=== PATIENT | female | born 1995 | race Caucasian/White ===

== ENCOUNTER → 2021-07-14 | Outpatient (CLI) | payer OTHER | LOC: M LAB 15:38 | PROVIDERS: ATTEND Nurse Practitioner Adult Health | DX: N91.2 Amenorrhea, unspecified (principal) ==

== ENCOUNTER 2021-11-16 15:13 | Emergency (ER) | payer OTHER ==
[~2021-11-16] VITALS: Ht 165.1 cm; Wt 63.6 kg
[2021-11-16] MEDS ORDERED: PREN1CHW6 PO (15:21)
[2021-11-16 16:23] LABS: BASO % 0.4 % (0.0-1.0); EOS # 0.1 10^3/uL (0.0-0.5); EOS % 0.5 % (0.0-3.0); HEMATOCRIT 39.5 % (36.0-47.0); HEMOGLOBIN 13.2 g/dl (12.0-15.5); LYMPH # 1.1 10^3/uL (1.5-5.0); MEAN CORPUSCULAR HEMOGLOBIN 30.3 pg (27.0-33.0); MEAN CORPUSCULAR HGB CONC 33.4 g/dl (32.0-36.5); MEAN CORPUSCULAR VOLUME 90.6 fl (80.0-96.0); MONO # 0.5 10^3/uL (0.0-0.8); MONO % 4.5 % (2.0-8.0); NEUTROPHILS # 8.5 10^3/uL (1.5-8.5); NEUTROPHILS % 83.3 % (36.0-66.0); PLATELET COUNT, AUTOMATED 181 10^3/uL (150-450); RED BLOOD COUNT 4.36 10^6/uL (4.00-5.40); WHITE BLOOD COUNT 10.2 10^3/uL (4.0-10.0)
[2021-11-16 17:05] LABS: APPEARANCE, URINE MANUAL CLEAR (CLEAR); BILIRUBIN, URINE MANUAL NEGATIVE (NEGATIVE); BLOOD URINE MANUAL POSITIVE (NEGATIVE); COLOR, URINE MANUAL YELLOW (YELLOW); GLUCOSE, URINE (UA) MANUAL NEGATIVE (NEGATIVE); KETONE, URINE MANUAL NEGATIVE (NEGATIVE); LEUKOCYTE ESTERASE, URINE MAN POSITIVE (NEGATIVE); NITRITE, URINE MANUAL NEGATIVE (NEGATIVE); PH,URINE MAN 6.5 UNITS (5.0 - 7.0); PROTEIN, URINE MANUAL NEGATIVE (NEGATIVE); SPECIFIC GRAVITY,URINE MANUAL 1.015 (1.002-1.035); UROBILINOGEN, URINE MANUAL NORMAL (NORMAL)
[2021-11-16 17:17] LABS: BLOOD UREA NITROGEN 13 MG/DL (7-18); CALCIUM LEVEL 8.9 MG/DL (8.5-10.1); CARBON DIOXIDE LEVEL 27 MEQ/L (21-32); CHLORIDE LEVEL 108 MEQ/L (98-107); CREATININE FOR GFR 0.69 MG/DL (0.55-1.30); GLOMERULAR FILTRATION RATE > 60.0 (>60); GLUCOSE, FASTING 92 MG/DL (70-100); HCG, SERUM QUANTITATIVE 1418 MIU/ML; POTASSIUM SERUM 3.8 MEQ/L (3.5-5.1); SODIUM LEVEL 140 MEQ/L (136-145)
[2021-11-16 17:37] LABS: BACTERIA, URINE LARGE AMOUNT; SQUAMOUS EPITHELIAL CELL URINE LARGE AMOUNT /hpf (SMALL AMT); WBC, URINE 15-20 /hpf (0-3)
[2021-11-16 20:33] VITALS: BP 112/63
== END 2021-11-16 20:38 | disposition home or self-care (01) ==
LOC: M ED 15:13
DX: O26.851 Spotting complicating pregnancy, first trimester (principal); Z3A.01 Less than 8 weeks gestation of pregnancy

== ENCOUNTER 2022-09-19 12:38 | Outpatient (CLI) | payer OTHER ==
[~2022-09-19] VITALS: Ht 165.1 cm; Wt 78.2 kg
[~2022-09-19 12:38] MED LIST: PREN1CHW6 PO
[2022-09-19 12:55] VITALS: BP 135/92; TEMP 99.8
[2022-09-19] MEDS ORDERED: NOXI1TAB PO (13:05)
[2022-09-19 13:09] VITALS: BP 130/76
[2022-09-19] MEDS ORDERED: HOME MED LIST COMPLETE! XX SCH (13:10)
[2022-09-19] MEDS ORDERED: CLOTRIMAZOLE 1% VAG CR 45 GM PV SCH (21:00)
[2022-09-19] MEDS ORDERED: MICONAZOLE-7 VAGINAL 2% CREAM 47.7GM PV SCH (21:00)
== END 2022-09-19 15:00 | disposition home or self-care (01) ==
LOC: M LDO 12:38
PROVIDERS: ATTEND Advanced Practice Midwife
DX: O36.8130 Decreased fetal movements, third trimester, not applicable or unspecified (principal); Z3A.35 35 weeks gestation of pregnancy; O23.593 Infection of other part of genital tract in pregnancy, third trimester
CPT/HCPCS: 59025; 76815; 87081; G0463

== ENCOUNTER → 2022-10-06 | Outpatient (CLI) | payer OTHER ==
[~2022-10-06] MED LIST changes: +NOXI1TAB PO
== END ==
LOC: M WHC 07:38
PROVIDERS: ATTEND Obstetrics & Gynecology
DX: O26.843 Uterine size-date discrepancy, third trimester (principal); Z3A.37 37 weeks gestation of pregnancy

== ENCOUNTER 2022-10-11 03:47 | Inpatient (IN) | payer OTHER ==
[~2022-10-11] VITALS: Ht 165.1 cm; Wt 79.9 kg
[2022-10-11] VITALS (49 sets, daily range): BP systolic 111–166; BP diastolic 57–92; O2SAT 97–98
[2022-10-11] MEDS ORDERED: LACTATED RINGER'S 1000 ML IV STA (04:46)
[2022-10-11] MEDS ORDERED: TRANEXAMIC ACID INJection 1,000 MG in NS 100 ML IV PRN (04:50)
[2022-10-11] MEDS ORDERED: CARBOPROST TROMETHAMINE 250 MCG/ML AMP IM PRN (04:50)
[2022-10-11] MEDS ORDERED: OXYTOCIN DRIP 30 UNITS in IV 1 EA IV PRN ×4 (04:50)
[2022-10-11] MEDS ORDERED: LIDOCAINE 1% MDV 20ML VIAL INFIL PRN (04:50)
[2022-10-11] MEDS ORDERED: METHYLERGONOVINE MALEATE 0.2MG/ML 1ML VIAL IM PRN (04:50)
[2022-10-11 05:12] LABS: HEMATOCRIT 41.5 % (36.0-47.0); HEMOGLOBIN 13.7 g/dl (12.0-15.5); MEAN CORPUSCULAR HEMOGLOBIN 30.4 pg (27.0-33.0); MEAN CORPUSCULAR VOLUME 92.2 fl (80.0-96.0); PLATELET COUNT, AUTOMATED 144 10^3/uL (150-450)
[2022-10-11] MEDS: LR 1,000 ML IV SCH ×2 (05:23→12:50)
[2022-10-11] MEDS ORDERED: diphenhydrAMINE 50MG/ML VIAL IV PRN (05:25)
[2022-10-11] MEDS ORDERED: EPIDURAL/PCA KEYS XX PRN (05:25)
[2022-10-11] MEDS ORDERED: ePHEDrine SULFATE 25 MG/5 ML(5MG/ML) SYRINGE IVP PRN (05:25)
[2022-10-11] MEDS ORDERED: ONDANSETRON 4MG 2ML VIAL IV PRN (05:25)
[2022-10-11] MEDS ORDERED: NALOXONE INJ 0.4MG/1ML VIAL IV PRN (05:25)
[2022-10-11] MEDS ORDERED: LR 500 ML IV PRN (05:25)
[2022-10-11] MEDS: FENTANYL/ROPIVACAINE/NACL BAG 100 ML EPIDURAL SCH ×2 (05:31→15:25)
[2022-10-11] MEDS ORDERED: ACETAMINOPHEN TAB 650MG DOSE (2X325MG) PO PRN (13:10)
[2022-10-11] MEDS ORDERED: IBUPROFEN 600MG TAB PO PRN (13:10)
[2022-10-11] MEDS ORDERED: METHYLERGONOVINE MALEATE 0.2 MG TAB PO PRN (13:10)
[2022-10-11] MEDS ORDERED: RHOGAM 300MCG (1500IU) INJ IM SCH (13:10)
[2022-10-11] MEDS ORDERED: DIBUCAINE 1% OINTMENT 30GM TOP PRN (13:10)
[2022-10-11] MEDS ORDERED: OXYTOCIN DRIP 30 UNITS in IV 1 EA IV SCH (13:10)
[2022-10-11] MEDS ORDERED: ANUSOL HC CREAM 30GM TOP PRN (13:10)
[2022-10-11] MEDS ORDERED: DOCUSATE SODIUM 100MG CAPSULE PO PRN (13:10)
[2022-10-11] MEDS: ACETAMINOPHEN 500 MG TAB PO PRN (16:09)
[2022-10-11] MEDS: IBUPROFEN 800 MG TAB PO PRN (19:50)
[2022-10-12] MEDS: ACETAMINOPHEN 500 MG TAB PO PRN ×3 (01:15→14:56)
[2022-10-12 06:00] VITALS: BP 110/58; O2SAT 97
[2022-10-12 07:13] LABS: HEMATOCRIT 31.5 % (36.0-47.0); MEAN CORPUSCULAR HEMOGLOBIN 31.3 pg (27.0-33.0); MEAN CORPUSCULAR HGB CONC 33.3 g/dl (32.0-36.5); PLATELET COUNT, AUTOMATED 104 10^3/uL (150-450); RED BLOOD COUNT 3.35 10^6/uL (4.00-5.40); WHITE BLOOD COUNT 9.3 10^3/uL (4.0-10.0)
[2022-10-12 07:16] LABS: HEMOGLOBIN 10.5 g/dl (12.0-15.5)
[2022-10-12] MEDS: PRENATAL VITAMINS CHEWABLE TABLET PO SCH (08:20)
[2022-10-12] MEDS: IBUPROFEN 800 MG TAB PO PRN ×2 (08:21→18:07)
[2022-10-12] MEDS ORDERED: HOME MED LIST COMPLETE! XX SCH (14:10)
[2022-10-12 18:00] VITALS: BP 111/59; O2SAT 98
[2022-10-13] MEDS: ACETAMINOPHEN 500 MG TAB PO PRN (01:28)
[2022-10-13 06:00] VITALS: BP 107/58; O2SAT 99
[2022-10-13] MEDS: PRENATAL VITAMINS CHEWABLE TABLET PO SCH (08:48)
[2022-10-13] MEDS ORDERED: MEASLES,MUMPS,RUBELLA VACCINE INJ (MMR-II) SC.IMMUN ONE (09:00)
[2022-10-13 17:57] VITALS: BP 134/85; O2SAT 97
== END 2022-10-13 18:10 | disposition home or self-care (01) | DRG 807 ==
LOC: M LDO 03:47 → M LDI 04:11 → M OBS 15:42
PROVIDERS: ADMIT Obstetrics & Gynecology; ATTEND Obstetrics & Gynecology
PROC: 10E0XZZ Delivery of Products of Conception, External Approach (ICD-10-PCS; principal; 2022-10-11)
PROC: 0KQM0ZZ Repair Perineum Muscle, Open Approach (ICD-10-PCS; 2022-10-11)
PROC: 10907ZC Drainage of Amniotic Fluid, Therapeutic from Products of Conception, Via Natural or Artificial Opening (ICD-10-PCS; 2022-10-11)
DX: O70.1 Second degree perineal laceration during delivery (principal); Z37.0 Single live birth; Z3A.38 38 weeks gestation of pregnancy; O69.82X0 Labor and delivery complicated by other cord entanglement, without compression, not applicable or unspecified

== ENCOUNTER → 2024-09-16 | Outpatient (REF) | payer OTHER | LOC: M SFHCWAGY 12:34 | PROVIDERS: ATTEND Obstetrics & Gynecology | DX: Z34.83 Encounter for supervision of other normal pregnancy, third trimester (principal) ==

== ENCOUNTER → 2024-09-24 | Outpatient (REF) | payer OTHER | LOC: M SFHCWAGY 16:45 | PROVIDERS: ATTEND Advanced Practice Midwife | DX: Z34.83 Encounter for supervision of other normal pregnancy, third trimester (principal); Z36.85 Encounter for antenatal screening for Streptococcus B ==

== ENCOUNTER 2024-10-01 00:03 | Inpatient (IN) | payer OTHER ==
[~2024-10-01] VITALS: Ht 165.1 cm; Wt 76.8 kg
[2024-10-01] VITALS (29 sets, daily range): BP systolic 78–137; BP diastolic 45–77; O2SAT 97–98
[2024-10-01] MEDS: METHYLERGONOVINE MALEATE 0.2 MG/ML 1 ML VIAL IM ONE (00:25)
[2024-10-01] MEDS: TRANEXAMIC ACID INJection 1,000 MG in NS 100 ML IV ONE (00:25)
[2024-10-01] MEDS: LIDOCAINE 1% MDV 20 ML VIAL INFIL ONE (00:25)
[2024-10-01] MEDS: CARBOPROST TROMETHAMINE 250 MCG/ML AMP IM ONE (00:25)
[2024-10-01] MEDS: LACTATED RINGER'S 1000 ML IV STA (00:33)
[2024-10-01] MEDS ORDERED: OXYTOCIN 30UNITS IN 0.9% NaCl 500ML IV BAG As Ordered ONE (00:42)
[2024-10-01 00:52] LABS: BASO # 0.0 10^3/uL (0.0-0.2); BASO % 0.3 % (0.0-1.0); EOS # 0.1 10^3/uL (0.0-0.5); EOS % 0.7 % (0.0-3.0); LYMPH # 2.0 10^3/uL (1.5-5.0); LYMPH % 16.5 % (24.0-44.0); MONO # 0.6 10^3/uL (0.0-0.8); MONO % 4.8 % (2.0-8.0); NEUTROPHILS # 9.3 10^3/uL (1.5-8.5); NEUTROPHILS % 77.3 % (36.0-66.0); PLATELET COUNT, AUTOMATED 158 10^3/uL (150-450)
[2024-10-01] MEDS ORDERED: ONDANSETRON 4MG 2ML VIAL IV PRN (01:15)
[2024-10-01] MEDS ORDERED: diphenhydrAMINE 50 MG/ML VIAL IV PRN (01:15)
[2024-10-01] MEDS ORDERED: NALOXONE INJ 0.4 MG/1 ML VIAL IV PRN (01:15)
[2024-10-01] MEDS ORDERED: LR 500 ML IV PRN (01:15)
[2024-10-01] MEDS ORDERED: EPIDURAL/PCA KEYS XX PRN (01:15)
[2024-10-01] MEDS ORDERED: FENTANYL 2 MCG/ML ROPIVACAINE 0.2% IN 0.9% NACL 100 ML IVBAG As Ordered ONE (01:21)
[2024-10-01] MEDS: FENTANYL/ROPIVACAINE/NACL BAG 100 ML EPIDURAL SCH (01:38)
[2024-10-01] MEDS: OXYTOCIN DRIP 30 UNITS in IV 1 EA IV SCH (03:10)
[2024-10-01 03:34] LABS: HIV 1&2 SCREEN NEGATIVE (NEGATIVE)
[2024-10-01 03:42] LABS: HEPATITIS C VIRUS ABY INDEX < 0.02 INDEX (<0.8)
[2024-10-01] MEDS ORDERED: DOCUSATE SODIUM 100 MG CAPSULE PO PRN (04:10)
[2024-10-01] MEDS ORDERED: METHYLERGONOVINE MALEATE 0.2 MG/ML 1 ML VIAL IM PRN (04:10)
[2024-10-01] MEDS ORDERED: MOM 30 ML SUSPENSION UDC PO PRN (04:10)
[2024-10-01] MEDS ORDERED: RHOGAM 300MCG (1500IU) INJ IM SCH (04:10)
[2024-10-01] MEDS ORDERED: IBUPROFEN 600 MG TAB PO PRN (04:10)
[2024-10-01] MEDS ORDERED: ACETAMINOPHEN 325 MG TAB PO PRN (04:10)
[2024-10-01] MEDS ORDERED: ANUSOL HC CREAM 30 GM TOP PRN (04:10)
[2024-10-01] MEDS: PRENATAL VITAMINS CHEWABLE TABLET PO SCH (08:16)
[2024-10-01] MEDS: IBUPROFEN 800 MG TAB PO PRN (08:17)
[2024-10-01] MEDS ORDERED: HOME MED LIST COMPLETE! XX SCH (11:10)
[2024-10-01] MEDS: DIBUCAINE 1% OINTMENT 30 GM TOP PRN (15:24)
[2024-10-01] MEDS: ACETAMINOPHEN 500 MG TAB PO PRN (23:25)
[2024-10-02 06:07] VITALS: BP 103/57; O2SAT 99
[2024-10-03] MEDS ORDERED: MEASLES,MUMPS,RUBELLA VACCINE INJ (MMR-II) SC.IMMUN ONE (09:00)
== END 2024-10-02 17:50 | disposition home or self-care (01) | DRG 807 ==
LOC: M LDO 00:03 → M LDI 00:22 → M OBS 05:20
PROVIDERS: ADMIT Advanced Practice Midwife; ATTEND Advanced Practice Midwife
PROC: 10E0XZZ Delivery of Products of Conception, External Approach (ICD-10-PCS; principal; 2024-10-01)
PROC: 0HQ9XZZ Repair Perineum Skin, External Approach (ICD-10-PCS; 2024-10-01)
PROC: 10907ZC Drainage of Amniotic Fluid, Therapeutic from Products of Conception, Via Natural or Artificial Opening (ICD-10-PCS; 2024-10-01)
DX: O70.0 First degree perineal laceration during delivery (principal); Z37.0 Single live birth; Z3A.37 37 weeks gestation of pregnancy